=== PATIENT | male | born 1980 | race African-American/Black ===

== ENCOUNTER 2016-11-08 20:52 | Emergency (ER) | payer SELFPAY ==
[~2016-11-08] VITALS: Ht 175.3 cm; Wt 77.0 kg
[2016-11-08] MEDS ORDERED: ALBU8.5H IH (21:00)
[2016-11-08] MEDS ORDERED: ALBUTEROL SULFATE 2.5 MG/0.5 ML NEB SOLUTION NEB ONE (21:15)
[2016-11-08] MEDS ORDERED: IPRATROPIUM BROMIDE 0.5 MG/2.5 ML NEB SOLUTION NEB ONE (21:15)
[2016-11-08 23:10] VITALS: BP 139/85
== END 2016-11-08 23:19 | disposition home or self-care (01) ==
LOC: EMS 20:54
DX: J45.909 Unspecified asthma, uncomplicated (principal); F12.90 Cannabis use, unspecified, uncomplicated
CPT/HCPCS: 94640; 99283; J7613

== ENCOUNTER 2017-08-20 05:03 | Emergency (ER) | payer OTHER ==
[~2017-08-20] VITALS: Ht 177.8 cm; Wt 77.3 kg
[~2017-08-20 05:03] MED LIST: ALBU8.5H8 IH
[2017-08-20] MEDS ORDERED: LIDOCAINE HCL 1% 10 ML VIAL INJ ONE (06:15)
[2017-08-20] MEDS ORDERED: CEFTAROLINE 600 MG/D5W 250 ML IV ONE (06:15)
[2017-08-20 07:11] VITALS: BP 124/71
== END 2017-08-20 07:13 | disposition home or self-care (01) ==
LOC: EMS 05:06
DX: L02.31 Cutaneous abscess of buttock (principal); J45.909 Unspecified asthma, uncomplicated; F12.90 Cannabis use, unspecified, uncomplicated
CPT/HCPCS: 10060; 96365; 99284; J0712; J3490